=== PATIENT | female | born 1960 | race Caucasian/White ===

== ENCOUNTER 2016-12-07 18:41 | Emergency (ER) | payer OTHER ==
[2016-12-07 18:54] VITALS: TEMP 97.9
[2016-12-07] MEDS ORDERED: PROMETHAZ-COD 6.25-10 MG/5 ML 5 ML CUP PO STA (19:02)
[2016-12-07] MEDS ORDERED: IPRATROPIUM-ALBUTEROL 3 ML NEB INHALATION STA (19:02)
--- NOTE | 2016-12-07 19:11 | ED ---
URI HPI - General Chief Complaint: Upper Respiratory Infection Stated Complaint: cough Time Seen by Provider: 12/07/16 18:51 Source: patient, family, RN notes reviewed, old records reviewed Mode of arrival: ambulatory Limitations: no limitations - History of Present Illness Initial Comments: This is a 56-year-old female presents emergency Department chief complaint of increased cough. Patient reports she's had a cough for 2 weeks. She saw her primary care provider on Thursday and was placed on a Z-Stephen, steroids, and albuterol inhaler. Patient reports that she finished these that she's continued to have a persistent cough. She states the cough is nonproductive. Denies any nausea or vomiting. Denies any fever or chills.Patient denies any recent fever, chills, shortness of breath, chest pain, back pain, abdominal pain , nausea vomiting, numbness or tingling, dysuria or hematuria, constipation or diarrhea, headaches or visual changes, or any other current symptoms - Related Data Home Medications Medication Instructions Recorded Confirmed PARoxetine HCL [Paxil] 30 mg PO HS 09/09/15 12/07/16 Baclofen [Lioresal] 5 mg PO TID 12/07/16 12/07/16 Cholecalciferol [Vitamin D3] 1,000 unit PO DAILY 12/07/16 12/07/16 Gabapentin [Neurontin] 300 mg PO TID 12/07/16 12/07/16 Multivitamins, Thera [Multivitamin 1 tab PO DAILY 12/07/16 12/07/16 (formulary)] Omeprazole 20 mg PO DAILY 12/07/16 12/07/16 Vitamin E 100 unit PO DAILY 12/07/16 12/07/16 clonazePAM [KlonoPIN] 0.5 mg PO BID 12/07/16 12/07/16 Previous Rx's Medication Instructions Recorded HYDROcodone/APAP 10-325MG [[place] 1 tab PO Q6H PRN #10 tab 09/09/15 10-325] Albuterol Inhaler [Ventolin Hfa 1 - 2 puff INHALATION Q6HR PRN #1 12/07/16 Inhaler] inhaler Levofloxacin [Levaquin] 750 mg PO DAILY #5 tab 12/07/16 Promethazine HCl/Codeine 5 ml PO TID #100 ml 09/10/17 [Prometh-Codein 6.25-10 mg/5 ml] predniSONE 50 mg PO DAILY #5 tablet 12/07/16 Allergies Allergy/AdvReac Type Severity Reaction Status Date / Time ibuprofen [From Motrin] Allergy Abdominal Verified 12/07/16 19:12 Pain Penicillins Allergy Rash/Hives Verified 12/07/16 19:12 Review of Systems ROS Statement: Those systems with pertinent positive or pertinent negative responses have been documented in the HPI. ROS Other: All systems not noted in ROS Statement are negative. Past Medical History Past Medical History: Cancer Additional Past Medical History / Comment(s): HEART MURMUR", BLOOD IN STOOL, migraines History of Any Multi-Drug Resistant Organisms: None Reported Past Surgical History: Adenoidectomy, Appendectomy, Bowel Resection, Section, Orthopedic Surgery, Tonsillectomy, Tubal Ligation Additional Past Surgical History / Comment(s): LEFT SHOULDER SURGERY Past Anesthesia/Blood Transfusion Reactions: No Reported Reaction Past Psychological History: Anxiety, Depression Smoking Status: Current some day smoker Past Alcohol Use History: None Reported Past Drug Use History: None Reported - Past Family History Mother Family Medical History: No Reported History General Exam - General Exam Comments Initial Comments: 56-year-old female. No acute distress. Limitations: no limitations General appearance: alert, in no apparent distress Head exam: Present: atraumatic, normocephalic, normal inspection Eye exam: Present: normal appearance, PERRL, EOMI. Absent: scleral icterus, conjunctival injection, periorbital swelling ENT exam: Present: normal exam, mucous membranes moist Neck exam: Present: normal inspection. Absent: tenderness, meningismus, lymphadenopathy Respiratory exam: Present: normal lung sounds bilaterally, wheezes (Mild bilateral wheezing.). Absent: respiratory distress, rales, rhonchi, stridor Cardiovascular Exam: Present: regular rate, normal rhythm, normal heart sounds. Absent: systolic murmur, diastolic murmur, rubs, gallop, clicks GI/Abdominal exam: Present: soft, normal bowel sounds. Absent: distended, tenderness, guarding, rebound, rigid Extremities exam: Present: normal inspection, full ROM, normal capillary refill. Absent: tenderness, pedal edema, joint swelling, calf tenderness Back exam: Present: normal inspection Neurological exam: Present: alert, oriented X3, CN II-XII intact Psychiatric exam: Present: normal affect Course Vital Signs 12/07/16 12/07/16 12/07/16 18:50 19:18 19:28 Temperature 97.9 F Pulse Rate 80 80 82 Respiratory 20 Rate Blood Pressure 134/61 O2 Sat by Pulse 99 Oximetry - Reevaluation(s) Reevaluation #1: 12/07/16 19:50 Patient is reevaluated and wheezing has resolved. Medical Decision Making - Medical Decision Making 56-year-old female presents emergency Department chief complaint of increased cough. Patient was area on azithromycin, prednisone. She states is been somewhat of a nonproductive cough. Patient's chest x-ray shows evidence of bronchitis. Patient is a smoker. No chest pain. Patient initially had some wheezing. Given a DuoNeb treatment and is feeling better at this time. Patient will be discharged with a prescription for Levaquin, steroids, new inhaler. As well as promethazine with codeine. Discussed close follow-up with primary care parents chest x-ray does show questionable pulmonary nodule. Discussed that she needs to have this closely followed up with her primary. Patient agrees treatment plan will comply. Return parameters were discussed. - Radiology Data Radiology results: report reviewed Peribronchial cuffing and interstitial changes. Correlate for bronchitis or uncontrolled asthma. Nodular density in the peripheral right base, suspect nipple shadow. Recommending short-term follow-up would be some nipple markers to exclude a pulmonary nodule. Disposition Clinical Impression: Bronchitis Disposition: HOME SELF-CARE Condition: Good Instructions: Upper Respiratory Infection (ED) Additional Instructions: Patient advised to follow up with your primary care provider within the next week. Take antibiotic and steroids. Return to emergency department if any alarming signs or symptoms occur. Prescriptions: Albuterol Inhaler [Ventolin Hfa Inhaler] 1 - 2 puff INHALATION Q6HR PRN #1 inhaler PRN Reason: Shortness Of Breath Levofloxacin [Levaquin] 750 mg PO DAILY #5 tab predniSONE 50 mg PO DAILY #5 tablet Promethazine HCl/Codeine [Prometh-Codein 6.25-10 mg/5 ml] 5 ml PO TID #100 ml Referrals: Deena Donovan MD [Primary Care Provider] - 1-2 days Time of Disposition: 19:52
--- NOTE | 2016-12-07 19:17 | XR ---
EXAMINATION TYPE: XR chest 2V DATE OF EXAM: 12/07/2016 COMPARISON: 03/27/2016 HISTORY: 56-year-old female with cough and congestion, pain TECHNIQUE: PA and lateral views FINDINGS: Heart is normal size. Diffuse interstitial prominence with some peribronchial cuffing. Nodular densit y at the peripheral right base, suspected nipple shadow. Some pleural-parenchymal scarring at the per ipheral right apex is similar. No carlee consolidation or pleural effusion. Right anterior chest wall injection port with catheter tip at the mid to lower SVC. IMPRESSION: 1. Peribronchial cuffing and interstitial changes. Correlate for bronchitis or uncontrolled asthma. 2. Nodular density in the peripheral right base, suspected nipple shadow. Recommend short interval fo llow-up with the use of nipple markers to exclude a pulmonary nodule.
[2016-12-07 20:10] VITALS: BP 107/61; PULSE 56; RESP 16
== END 2016-12-07 20:10 | disposition home or self-care (01) ==
LOC: EC 18:41
DX: J40 Bronchitis, not specified as acute or chronic (principal); F41.9 Anxiety disorder, unspecified; F32.9 Major depressive disorder, single episode, unspecified; F17.200 Nicotine dependence, unspecified, uncomplicated; Z85.9 Personal history of malignant neoplasm, unspecified; Z79.899 Other long term (current) drug therapy; Z88.0 Allergy status to penicillin; Z88.6 Allergy status to analgesic agent
CPT/HCPCS: 71020; 94640; 99284

== ENCOUNTER 2017-09-13 20:19 | Emergency (ER) | payer OTHER ==
--- NOTE | 2017-09-13 20:38 | ED ---
General Adult HPI - General Chief complaint: Extremity Problem,Nontraumatic Stated complaint: L Leg swelling Source: patient Mode of arrival: ambulatory Limitations: no limitations - History of Present Illness Initial comments: Chief Complaint: 56 female with remote history of colon cancer, multiple psychiatric problems presents with left lower extremity pain. History of Present Illness: This 56-year-old female with past medical history of colon cancer, multiple psychiatric disease presents with left flexion of any pain. Patient states she had just returned from [place] approximately one week ago. She reports that she noticed left lower extremity swelling today. Patient reports that the swelling extends from the left proximal thigh to the left distal calf. She also complains of swelling in the left foot. Patient denies any chest pain or shortness of breath. Patient has history of colon status post colon resection. She recently had a PET scan however does not results of that study yet. Denies any fever, chills or night sweats. Past Medical History: Psychiatric disease, chronic pain, colon cancer Past Surgical History: And colon resection, appendectomy, , tonsillectomy Social History: [denies alcohol, tobacco or illicit drug use] Family History: reviewed and noncontributory The ROS documented in this emergency department record has been reviewed and confirmed by me. Those systems with pertinent positive or negative responses have been documented in the HPI. All other systems are other negative and/or noncontributory. - Related Data Home Medications Medication Instructions Recorded Confirmed PARoxetine HCL [Paxil] 30 mg PO HS 09/09/15 12/07/16 Baclofen [Lioresal] 5 mg PO TID 12/07/16 12/07/16 Cholecalciferol [Vitamin D3] 1,000 unit PO DAILY 12/07/16 12/07/16 Gabapentin [Neurontin] 300 mg PO TID 12/07/16 12/07/16 Multivitamins, Thera [Multivitamin 1 tab PO DAILY 12/07/16 12/07/16 (formulary)] Omeprazole 20 mg PO DAILY 12/07/16 12/07/16 Vitamin E 100 unit PO DAILY 12/07/16 12/07/16 clonazePAM [KlonoPIN] 0.5 mg PO BID 12/07/16 12/07/16 Previous Rx's Medication Instructions Recorded HYDROcodone/APAP 10-325MG [[place] 1 tab PO Q6H PRN #10 tab 09/09/15 10-325] Albuterol Inhaler [Ventolin Hfa 1 - 2 puff INHALATION Q6HR PRN #1 12/07/16 Inhaler] inhaler Levofloxacin [Levaquin] 750 mg PO DAILY #5 tab 12/07/16 Promethazine HCl/Codeine 5 ml PO TID #100 ml 12/07/16 [Prometh-Codein 6.25-10 mg/5 ml] predniSONE 50 mg PO DAILY #5 tablet 12/07/16 Allergies Allergy/AdvReac Type Severity Reaction Status Date / Time ibuprofen [From Motrin] Allergy Abdominal Verified 09/13/17 20:28 Pain Penicillins Allergy Rash/Hives Verified 09/13/17 20:28 Review of Systems ROS Statement: Those systems with pertinent positive or pertinent negative responses have been documented in the HPI. ROS Other: All systems not noted in ROS Statement are negative. Past Medical History Past Medical History: Cancer Additional Past Medical History / Comment(s): HEART MURMUR", BLOOD IN STOOL, migraines, colon cancer History of Any Multi-Drug Resistant Organisms: None Reported Past Surgical History: Adenoidectomy, Appendectomy, Bowel Resection, Section, Orthopedic Surgery, Tonsillectomy, Tubal Ligation Additional Past Surgical History / Comment(s): LEFT SHOULDER SURGERY Past Anesthesia/Blood Transfusion Reactions: No Reported Reaction Past Psychological History: Anxiety, Depression Smoking Status: Current some day smoker Past Alcohol Use History: None Reported Past Drug Use History: None Reported - Past Family History Mother Family Medical History: No Reported History General Exam - General Exam Comments Initial Comments: Vitals: Vital signs upon arrival are within acceptable limits PHYSICAL EXAM: General Impression: Alert and oriented x3, not in acute distress HEENT: Normocephalic atraumatic, extra-ocular movements intact, pupils equal and reactive to light bilaterally, mucous membranes moist. Cardiovascular: Heart regular rate and rhythm, S1&S2 audible, no murmurs, rubs or gallops Chest: Lungs clear to auscultation bilaterally, no rhonchi, no wheeze, no rales Abdomen: Bowel sounds present, abdomen soft, non-tender, non-distended, no organomegaly Musculoskeletal: Pulses present and equal in all extremities, nonpitting edema of the left lower extremity, tenderness to palpation over the deep venous systems at the proximal thigh, popliteal space and distal calf, mild swelling of the left lower extremity compared to the right Motor: Power 5/5 bilaterally, no focal deficits noted Neurological: CN II-XII grossly intact, no focal motor or sensory deficits noted Skin: Intact with no visualized rashes Psych: Normal affect and mood Limitations: no limitations Course Vital Signs 09/13/17 09/13/17 20:25 20:51 Temperature 98.4 F Pulse Rate 80 75 Respiratory 20 18 Rate Blood Pressure 111/71 106/59 O2 Sat by Pulse 99 100 Oximetry Medical Decision Making - Medical Decision Making ED course: 56 yo female with clinical presentation suspicious for left lower extremity deep venous thrombosis. At this point there is no clinical suspicion of thromboembolism. Patient not tachycardic. Furthermore, she is not complaining of shortness of breath or chest pain. Laboratory evaluation obtained showing no acute processes. Ultrasound duplex of the left lower extremity was obtained showing no signs of deep venous thrombosis. Discussed with patient these findings. At this point there is no clear etiology of patient's symptoms. She is told to follow-up with her primary care physician upon discharge. She is told to return to the emergency department should she experience any worsening pain in her leg localized to the medial thigh popliteal knee. She is told to notify her primary care physician that she was evaluated for the venous thrombosis today. Patient told that she may benefit from repeat ultrasound of the legs for potential propagation of possible distal DVTs. Patient is understandable and agreeable to plan. She'll be discharged. EKG Interpretation: A 12 lead EKG was obtained. It was interpreted by myself and attending physician. There is a P wave before every QRS complex. Rate is 79. Rhythm is normal sinus rhythm, MO interval 134, care surgeon 82, QTc 467. QT is not prolonged. No ST segment depression or elevation. Overall, this EKG is unremarkable - Lab Data Result diagrams: 09/13/17 20:49 09/13/17 20:49 Lab Results 09/13/17 09/13/17 09/13/17 Range/Units 20:49 20:49 20:49 WBC 5.6 (3.8-10.6) k/uL RBC 3.48 L (3.80-5.40) m/uL Hgb 10.7 L (11.4-16.0) gm/dL Hct 31.6 L (34.0-46.0) % MCV 90.8 (80.0-100.0) fL MCH 30.8 (25.0-35.0) pg MCHC 34.0 (31.0-37.0) g/dL RDW 13.5 (11.5-15.5) % Plt Count 110 L (150-450) k/uL Neutrophils % 56 % Lymphocytes % 32 % Monocytes % 6 % Eosinophils % 4 % Basophils % 0 % Neutrophils # 3.1 (1.3-7.7) k/uL Lymphocytes # 1.8 (1.0-4.8) k/uL Monocytes # 0.3 (0-1.0) k/uL Eosinophils # 0.2 (0-0.7) k/uL Basophils # 0.0 (0-0.2) k/uL PT 10.1 (9.0-12.0) sec INR 1.0 (<1.2) Sodium 138 (137-145) mmol/L Potassium 4.3 (3.5-5.1) mmol/L Chloride 102 (98-107) mmol/L Carbon Dioxide 26 (22-30) mmol/L Anion Gap 10 mmol/L BUN 13 (7-17) mg/dL Creatinine 1.10 H (0.52-1.04) mg/dL Est GFR (CKD-EPI)AfAm 65 (>60 ml/min/1.73 sqM) Est GFR (CKD-EPI)NonAf 56 (>60 ml/min/1.73 sqM) Glucose 102 H (74-99) mg/dL Calcium 8.8 (8.4-10.2) mg/dL Disposition Clinical Impression: Edema extremities Disposition: HOME SELF-CARE Condition: Stable Instructions: Leg Edema (ED) Is patient prescribed a controlled substance at d/c from ED?: No Referrals: Deena Donovan MD [Primary Care Provider] - 1-2 days Time of Disposition: 21:53
[2017-09-13 21:07] LABS: Basophils % (A) 0 %; Eosinophils # (A) 0.2 k/uL (0-0.7); Eosinophils % (A) 4 %; HCT 31.6 % (34.0-46.0); HGB 10.7 gm/dL (11.4-16.0); Lymphocytes # (A) 1.8 k/uL (1.0-4.8); Lymphocytes % (A) 32 %; MCH 30.8 pg (25.0-35.0); MCV 90.8 fL (80.0-100.0); Mean Platelet Volume 8.2; Monocytes # (A) 0.3 k/uL (0-1.0); Monocytes % (A) 6 %; Neutrophils # (A) 3.1 k/uL (1.3-7.7); Neutrophils % (A) 56 %; Platelet Count 110 k/uL (150-450); RBC 3.48 m/uL (3.80-5.40); RDW 13.5 % (11.5-15.5); WBC 5.6 k/uL (3.8-10.6)
[2017-09-13 21:08] LABS: Prothrombin Time 10.1 sec (9.0-12.0)
[2017-09-13 21:12] LABS: Calcium 8.8 mg/dL (8.4-10.2); Potassium 4.3 mmol/L (3.5-5.1)
--- NOTE | 2017-09-13 21:30 | US ---
EXAMINATION TYPE: US venous doppler duplex LE LT DATE OF EXAM: 09/13/2017 8:35 PM COMPARISON: NONE CLINICAL HISTORY: Pain. Left leg pain and swelling x 1 day SIDE PERFORMED: Left TECHNIQUE: The lower extremity deep venous system is examined utilizing real time linear array sonog ann marie with graded compression, doppler sonography and color-flow sonography. VESSELS IMAGED: External Iliac Vein (EIV) Common Femoral Vein Deep Femoral Vein Greater Saphenous Vein * Femoral Vein Popliteal Vein Small Saphenous Vein * Proximal Calf Veins (* superficial vessels) Left Leg: Appears negative for DVT IMPRESSION: Negative left leg duplex venous sonogram.
[2017-09-13 22:07] VITALS: BP 110/67; PULSE 77; RESP 15; TEMP 98.2
== END 2017-09-13 22:11 | disposition home or self-care (01) ==
LOC: EC 20:19
DX: R60.0 Localized edema (principal); F41.9 Anxiety disorder, unspecified; F32.9 Major depressive disorder, single episode, unspecified; F17.200 Nicotine dependence, unspecified, uncomplicated; Z85.038 Personal history of other malignant neoplasm of large intestine; Z79.899 Other long term (current) drug therapy; Z88.0 Allergy status to penicillin; Z88.6 Allergy status to analgesic agent
CPT/HCPCS: 36415; 80048; 85025; 85610; 93005; 99284

== ENCOUNTER → 2017-09-18 | Outpatient (CLI) | payer OTHER ==
--- NOTE | 2017-09-18 09:37 | US ---
EXAMINATION TYPE: US abdomen complete DATE OF EXAM: 09/18/2017 COMPARISON: NONE CLINICAL HISTORY: R10.12 Left upper quad pain. Epigastric pain for 1 week EXAM MEASUREMENTS: Liver Length: 13.5 cm Gallbladder Wall: 0.3 cm CBD: 0.3 cm Spleen: 12.5 cm Right Kidney: 9.9 x 3.8 x 4.2 cm Left Kidney: 10.2 x 4.1 x 4.6 cm Pancreas: visualized portions appear wnl Liver: wnl Gallbladder: no evidence of stones Evidence for sonographic Marr's sign: no CBD: wnl Spleen: wnl Right Kidney: no evidence of hydronephrosis, limited evaluation of lower pole due to overlying bowel Left Kidney: lobulated contour Upper IVC: wnl Abd Aorta: visualized portions appear wnl, bifurcation obscured IMPRESSION: 1. Abdomen ultrasound as visualized is unremarkable.
== END | disposition home or self-care (01) ==
LOC: RADUSWWP 08:49
PROVIDERS: ATTEND Internal Medicine
DX: R10.12 Left upper quadrant pain (principal); Z88.0 Allergy status to penicillin; Z88.6 Allergy status to analgesic agent
CPT/HCPCS: 76700

== ENCOUNTER → 2017-10-21 | Outpatient (CLI) | payer OTHER ==
--- NOTE | 2017-10-22 11:11 | MM ---
Reason for exam: screening (asymptomatic). Last mammogram was performed 16 years and 9 months ago. History: Patient is postmenopausal and has history of colon cancer at age 54. Physical Findings: A clinical breast exam by your physician is recommended on an annual basis and results should be correlated with mammographic findings. MG Screening Mammo w CAD Bilateral CC and MLO view(s) were taken. Prior study comparison: February 03, 2001, bilateral screening mammogram, performed at [facility]. January 15, 2000, bilateral screening mammogram, performed at [facility]. The breast tissue is heterogeneously dense. This may lower the sensitivity of mammography. There is no discrete abnormality. No significant changes when compared with prior studies. ASSESSMENT: Negative, BI-RAD 1 RECOMMENDATION: Routine screening mammogram of both breasts in 1 year.
== END | disposition home or self-care (01) ==
LOC: RADMAMWWP 14:02
PROVIDERS: ATTEND Internal Medicine
DX: Z12.31 Encounter for screening mammogram for malignant neoplasm of breast (principal)
CPT/HCPCS: 77067

== ENCOUNTER 2018-02-02 12:19 | Emergency (ER) | payer OTHER ==
[2018-02-02 12:31] VITALS: RESP 18
--- NOTE | 2018-02-02 12:51 | ED ---
Lower Extremity Injury HPI - General Chief Complaint: Extremity Injury, Lower Stated Complaint: Foot pain Time Seen by Provider: 02/02/18 12:30 Source: patient, RN notes reviewed Mode of arrival: wheelchair Limitations: no limitations - History of Present Illness Initial Comments: 57-year-old female presents emergency Department chief complaint of left foot and ankle pain. Patient states she injured it approximately 2-3 weeks ago had x -rays at another ER and was told that she had a sprain. Patient states she's had no improvement states it starts to ambulate. She did follow-up with PCP who told her she just sprained still had no repeat x-rays. Patient has not seen orthopedic physician. Patient denies any paresthesias. - Related Data Home Medications Medication Instructions Recorded Confirmed PARoxetine HCL [Paxil] 30 mg PO HS 09/09/15 12/07/16 Baclofen [Lioresal] 5 mg PO TID 12/07/16 12/07/16 Cholecalciferol [Vitamin D3] 1,000 unit PO DAILY 12/07/16 12/07/16 Gabapentin [Neurontin] 300 mg PO TID 12/07/16 12/07/16 Multivitamins, Thera [Multivitamin 1 tab PO DAILY 12/07/16 12/07/16 (formulary)] Omeprazole 20 mg PO DAILY 12/07/16 12/07/16 Vitamin E 100 unit PO DAILY 12/07/16 12/07/16 clonazePAM [KlonoPIN] 0.5 mg PO BID 12/07/16 12/07/16 Previous Rx's Medication Instructions Recorded HYDROcodone/APAP 10-325MG [[place] 1 tab PO Q6H PRN #10 tab 09/09/15 10-325] Albuterol Inhaler [Ventolin Hfa 1 - 2 puff INHALATION Q6HR PRN #1 12/07/16 Inhaler] inhaler Levofloxacin [Levaquin] 750 mg PO DAILY #5 tab 12/07/16 Promethazine HCl/Codeine 5 ml PO TID #100 ml 12/07/16 [Prometh-Codein 6.25-10 mg/5 ml] predniSONE 50 mg PO DAILY #5 tablet 12/07/16 Allergies Allergy/AdvReac Type Severity Reaction Status Date / Time ibuprofen [From Motrin] Allergy Abdominal Verified 02/02/18 12:31 Pain Penicillins Allergy Rash/Hives Verified 02/02/18 12:31 Review of Systems ROS Statement: Those systems with pertinent positive or pertinent negative responses have been documented in the HPI. ROS Other: All systems not noted in ROS Statement are negative. Past Medical History Past Medical History: Cancer Additional Past Medical History / Comment(s): HEART MURMUR", BLOOD IN STOOL, migraines, colon cancer History of Any Multi-Drug Resistant Organisms: None Reported Past Surgical History: Adenoidectomy, Appendectomy, Bowel Resection, Section, Orthopedic Surgery, Tonsillectomy, Tubal Ligation Additional Past Surgical History / Comment(s): LEFT SHOULDER SURGERY Past Anesthesia/Blood Transfusion Reactions: No Reported Reaction Past Psychological History: Anxiety, Depression Smoking Status: Current every day smoker Past Alcohol Use History: None Reported Past Drug Use History: None Reported - Past Family History Mother Family Medical History: No Reported History General Exam Limitations: no limitations General appearance: alert, in no apparent distress Head exam: Present: atraumatic, normocephalic, normal inspection Eye exam: Present: normal appearance, PERRL, EOMI. Absent: scleral icterus, conjunctival injection, periorbital swelling Respiratory exam: Present: normal lung sounds bilaterally. Absent: respiratory distress, wheezes, rales, rhonchi, stridor Cardiovascular Exam: Present: regular rate, normal rhythm, normal heart sounds. Absent: systolic murmur, diastolic murmur, rubs, gallop, clicks Extremities exam: Present: other (Left foot tenderness to the left fifth metatarsal, there is mild lateral malleoli tenderness with ecchymosis noted, no proximal tib-fib tenderness neurovascular intact) Course Vital Signs 02/02/18 12:29 Temperature 97.8 F Pulse Rate 93 Respiratory 18 Rate Blood Pressure 125/81 O2 Sat by Pulse 96 Oximetry Medical Decision Making - Medical Decision Making 57-year-old female presented emergency from for recheck of left foot and ankle injury. There is no acute fracture on x-rays. Patient will follow-up with orthopedics for possible bone scan or further evaluation. Patient will continue conservative treatment and return for any worsening symptoms. Disposition Clinical Impression: Sprain of left foot Disposition: HOME SELF-CARE Condition: Stable Instructions: Foot Sprain (ED) Additional Instructions: Please return to the Emergency Department if symptoms worsen or any other concerns. Is patient prescribed a controlled substance at d/c from ED?: No Referrals: Deena Donovan MD [Primary Care Provider] - 1-2 days Jason Fermin DO [Doctor of Osteopathic Medicine] - 1-2 days Time of Disposition: 13:17
--- NOTE | 2018-02-02 12:54 | XR ---
EXAMINATION TYPE: XR ankle complete LT, XR foot complete LT DATE OF EXAM: 02/02/2018 CLINICAL HISTORY: Pain since injury 3 weeks ago. TECHNIQUE: Frontal, lateral and oblique images of the left ankle and foot are obtained. COMPARISON: None. FINDINGS: There is no acute fracture/dislocation evident in the left ankle. The ankle mortise appea rs within normal limits. The overlying soft tissue appears unremarkable. There is no acute fracture or dislocation evident in the left foot. Flexion in the toes is present. The joint spaces in the left foot are preserved. Accessory ossicle near cuboid bone is present. Overl regan soft tissue is unremarkable. IMPRESSION: There is no acute fracture or dislocation in the left ankle or foot.
[2018-02-02 13:35] VITALS: BP 114/76; PULSE 77; TEMP 97.5
== END 2018-02-02 13:30 | disposition home or self-care (01) ==
LOC: EC 12:19
DX: S93.602A Unspecified sprain of left foot, initial encounter (principal); F32.9 Major depressive disorder, single episode, unspecified; F41.9 Anxiety disorder, unspecified; F17.200 Nicotine dependence, unspecified, uncomplicated; Z88.0 Allergy status to penicillin; Z88.6 Allergy status to analgesic agent; Z79.899 Other long term (current) drug therapy; Z86.69 Personal history of other diseases of the nervous system and sense organs; Z85.038 Personal history of other malignant neoplasm of large intestine; Z90.49 Acquired absence of other specified parts of digestive tract; W19.XXXA Unspecified fall, initial encounter
CPT/HCPCS: 99283

== ENCOUNTER → 2018-03-01 | Outpatient (CLI) | payer OTHER ==
--- NOTE | 2018-03-02 03:47 | MR ---
EXAMINATION TYPE: MR foot LT wo con DATE OF EXAM: 03/01/2018 COMPARISON: None HISTORY: Pain and swelling for 2 months. Standard multiplanar, multisequence MRI departmental protocol Multiplanar, multisequence images of the left foot were acquired. Diffusion weighted imaging was perf ormed. FINDINGS: The metatarsals are intact. The phalanges appear intact. I see no fracture line. There is m inimal effusion at the MP joints. Intertarsal joint spaces are fairly normal. Achilles tendon is inta ct. The medial and lateral flexor tendons of the foot appear intact. The tarsal bones have normal sig nal pattern without evidence of edema. There is small ankle joint effusion. There is some mild soft tissue edema on the medial aspect of the hindfoot and also the plantar aspect of the second and third proximal metatarsals consistent with nonspecific inflammation. IMPRESSION: There is ankle joint effusion consistent with nonspecific synovitis. No fracture seen. No evidence of a stress fracture. Minimal soft tissue edema on the medial aspect of the hindfoot and plantar aspect of the midfoot Minimal MP joint effusions consistent with mild nonspecific synovitis.
== END | disposition home or self-care (01) ==
LOC: RADMRIMAIN 20:39
PROVIDERS: ATTEND Podiatrist Foot & Ankle Surgery
DX: M25.472 Effusion, left ankle (principal)

== ENCOUNTER → 2018-07-06 | Outpatient (CLI) | payer OTHER | LOC: LABWHC1 10:37 | PROVIDERS: ATTEND Psychiatry & Neurology Pain Medicine | DX: Z53.9 Procedure and treatment not carried out, unspecified reason (principal) ==

== ENCOUNTER → 2018-08-10 | Outpatient (CLI) | payer OTHER ==
--- NOTE | 2018-08-10 16:53 | US ---
EXAMINATION TYPE: US carotid duplex BILAT DATE OF EXAM: 08/10/2018 COMPARISON: NONE CLINICAL HISTORY: Dizziness R42. EXAM MEASUREMENTS: RIGHT: Peak Systolic Velocity (PSV) cm/sec ----- Right CCA: 82.9 ----- Right ICA: 90.1 ----- Right ECA: 66.2 ICA/CCA ratio: 1.1 RIGHT: End Diastole cm/sec ----- Right CCA: 30.5 ----- Right ICA: 38.1 ----- Right ECA: 11.5 LEFT: Peak Systolic Velocity (PSV) cm/sec ----- Left CCA: 84.5 ----- Left ICA: 83.2 ----- Left ECA: 108.3 ICA/CCA ratio: 1.0 LEFT: End Diastole cm/sec ----- Left CCA: 28.5 ----- Left ICA: 39.9 ----- Left ECA: 13.7 VERTEBRALS (direction of flow): Right Vertebral: Antegrade Left Vertebral: Antegrade Rhythm: Normal Minimal plaque with no significant velocity elevations. IMPRESSION: Mild degree of grayscale atheromatous plaquing with no sonographically evident hemodynam ically significant stenosis within either visualized carotid arterial system. Criteria for Assigning % of Stenosis / Diameter reduction (Estimation based on the indirect measurements of the internal carotid artery velocities (ICA PSV). 1. Normal (no stenosis)=ICA PSV < 125 cm/s: ratio < 2.0: ICA EDV<40 cm/s. 2. Less than 50% stenosis=ICA PSV < 125 cm/s: ratio < 2.0: ICA EDV<40 cm/s. 3. 50 to 69% stenosis=ICA PSV of 125 to 230 cm/s: ration 2.0 ? 4.0: ICA EDV 40-100 cm/s. 4. Greater than 70% stenosis to near occlusion= ICA PSV > 230 cm/s: ratio > 4.0: ICA EDV > 100 cm/s. 5. Near occlusion= ICA PSV velocities may be low or undetectable: variable ratio and ICA EDV. 6. Total occlusion=unable to detect flow.
== END | disposition home or self-care (01) ==
LOC: RADUSWWP 14:20
PROVIDERS: ATTEND Psychiatry & Neurology Neurology
DX: I65.29 Occlusion and stenosis of unspecified carotid artery (principal); R42 Dizziness and giddiness
CPT/HCPCS: 93880